=== PATIENT | female | born 1985 | race Two or more races ===

== ENCOUNTER 2023-09-20 18:49 | Emergency (ER) | payer SELFPAY ==
[~2023-09-20] VITALS: Ht 165.1 cm; Wt 60.0 kg
[2023-09-20 18:52] VITALS: O2SAT 91
[2023-09-20] MEDS ORDERED: SODIUM CHLORIDE 0.9% 1,000 ML IV ONE (19:00)
[2023-09-20 19:47] LABS: BASOPHILS % 1.3 % (0.0-2.0); EOSINOPHILS % 3.6 % (0.0-5.0); HEMATOCRIT. 30.8 % (36.0-48.0); HEMOGLOBIN. 8.9 g/dL (12.0-16.0); LYMPHOCYTES % 27.8 % (20.0-50.0); MEAN CORPUSCULAR HEMOGLOBIN 16.7 pg (28.0-32.0); MEAN CORPUSCULAR HGB CONC 28.8 g/dL (31.0-37.0); MEAN PLATELET VOLUME 8.6 fl (7.4-10.4); MONOCYTES % 9.4 % (2.0-8.0); NEUTROPHILS % 57.9 % (40.0-76.0); PLATELET 270 x1000/uL (130-400); RED BLOOD CELL COUNT 5.32 mill/uL (4.2-5.4); RED CELL DISTRIBUTION WIDTH 19.3 % (11.6-14.6); WHITE BLOOD COUNT 3.8 x1000/uL (4.5-11.0)
[2023-09-20 19:51] LABS: CHLORIDE 105 mEq/L (98-107); POTASSIUM 3.6 mEq/L (3.5-5.1); SODIUM 137 mEq/L (136-145)
[2023-09-20 19:52] LABS: ADD RBC MORPHOLOGY YES; CALCIUM 10.2 mg/dL (8.7-10.4); CARBON DIOXIDE 24 mEq/L (21-32); DIFFERENTIAL COMMENT 1
[2023-09-20 19:57] LABS: CREATININE 1.2 mg/dL (0.6-1.0); GLUCOSE 136 mg/dL (70-105); UREA NITROGEN BLOOD 15 mg/dL (9-23)
[2023-09-20 19:58] LABS: TROPONIN I HIGH SENSITIVITY 19 ng/L (3.0-34)
[2023-09-20 20:01] LABS: HCG SCREEN NEGATIVE
[2023-09-20 20:05] LABS: INR 1.3; PROTHROMBIN TIME 14.1 sec (9.6-11.0)
[2023-09-20 20:36] VITALS: BP 104/61; PULSE 73; RESP 16; TEMP 98.3
[2023-09-20 21:09] LABS: ANISOCYTOSIS 1+; HYPOCHROMASIA 3+; MICROCYTOSIS 3+; OVALOCYTES 1+; PLATELET ESTIMATE NORMAL
== END 2023-09-20 20:40 | disposition left against medical advice (07) ==
LOC: ER 18:49
DX: R55 Syncope and collapse (principal); N17.9 Acute kidney failure, unspecified; Z98.890 Other specified postprocedural states; Q23.4 Hypoplastic left heart syndrome
CPT/HCPCS: 99285; 71045; 80048; 84703; 83880; 83605; 85025; 85610; 87040; 84484; 36415; 84145; 93005; J7030